=== PATIENT | male | born 1940 | race African-American/Black ===

== ENCOUNTER → 2017-07-01 | Outpatient (CLI) | payer BC, OTHER ==
[2014-07-30 12:00] VITALS: BP 145/63
[~2017-07-01] MED LIST: CYAN1TAB28 PO; FOLI0.4T PO; HYDR-2678 PO; LOSA1TAB19 PO; METF500T4 PO; SIMV20TA3 PO; TRAM-48 PO; TRAM50TA PO
[2017-07-01] MEDS: IOHEXOL 300 MG/ML 75 ML VIAL IV ONE (10:45)
--- NOTE | 2017-07-01 11:32 | RAD ---
CT chest Indication: Malignant neoplasm of upper lobe of right lung. Technique: CT chest with 75 mL of Omnipaque 300 with multiplanar reformats. Comparison: Previous CT chest from 07/17/2016 Findings: Stable 8 mm right thyroid low attenuating nodule. No axillary, mediastinal or hilar adenopathy. Heart is normal in size. No pericardial or pleural effusion. 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 Post surgical changes are seen in the right suprahilar region. Patulous midthoracic esophagus. No enhancing hilar mass. Redemonstrated is a stable partially calcified pulmonary nodule in the lingula measuring 1.4 x 1.7 cm. Upper lobe predominant emphysematous changes. The visualized liver is within normal limits. Punctate calcifications in the spleen likely healed granulomatous disease. No radiopaque gallstones. Visualized pancreas and adrenal glands are within normal limits. Stable deformity of the right posterior sixth rib. No suspicious bony lesions. Impression: 1. Postsurgical changes in the right suprahilar region. No new pulmonary mass. 2. Upper predominant emphysema. 3. Stable calcified granulomas in the lingula. PQRS Compliance Statement: One or more of the following individualized dose reduction techniques were utilized for this examination: 1. Automated exposure control 2. Adjustment of the mA and/or kV according to patient size 3. Use of iterative reconstruction technique
== END | disposition home or self-care (01) ==
LOC: CT 09:55
PROVIDERS: ATTEND Internal Medicine Hematology & Oncology
DX: C34.11 Malignant neoplasm of upper lobe, right bronchus or lung (principal); J43.9 Emphysema, unspecified; I10 Essential (primary) hypertension; E11.9 Type 2 diabetes mellitus without complications; Z87.891 Personal history of nicotine dependence; Z79.01 Long term (current) use of anticoagulants
CPT/HCPCS: 71260; Q9967

== ENCOUNTER 2017-11-26 21:49 | Emergency (ER) | payer BC, OTHER ==
[2017-11-26 23:16] LABS: ADD MAN DIFF? NO
[2017-11-26 23:18] LABS: BASO % 1 % (0-3); EOS # 0.1 x10^3/uL (0.0-0.7); EOS % 1 % (0-3); HEMATOCRIT 44.1 % (39.0-53.0); HEMOGLOBIN 15.2 g/dL (13.0-17.5); LYMPH # 1.3 x10^3/uL (1.0-4.8); LYMPH % 22 % (24-48); MEAN CORPUSCULAR HEMOGLOBIN 30 pg (25-35); MEAN CORPUSCULAR HGB CONC 35 g/dL (31-37); MEAN CORPUSCULAR VOLUME 87 fL (79-100); MONO # 0.7 x10^3/uL (0.0-1.1); MONO % 11 % (0-9); NEUT # 3.8 x10^3uL (1.8-7.7); NEUT % 65 % (31-73); PLATELET COUNT 165 x10^3/uL (140-400); RED BLOOD COUNT 5.06 x10^6/uL (4.30-5.70); RED CELL DISTRIBUTION WIDTH 13.7 % (11.5-14.5); WHITE BLOOD COUNT 5.9 x10^3/uL (4.0-11.0)
[2017-11-26 23:26] LABS: ANION GAP 5 (6-14); BLOOD UREA NITROGEN 7 mg/dL (8-26); CALCIUM 8.4 mg/dL (8.5-10.1); CARBON DIOXIDE 29 mmol/L (21-32); CHLORIDE 104 mmol/L (98-107); CREATININE 0.9 mg/dL (0.7-1.3); GFR 99.5; GLUCOSE 143 mg/dL (70-99); POTASSIUM 3.4 mmol/L (3.5-5.1); SODIUM 138 mmol/L (136-145)
[2017-11-26 23:27] LABS: INFLUENZA A PATIENT NEGATIVE (NEGATIVE)
[2017-11-26 23:28] LABS: INFLUENZA B PATIENT POSITIVE (NEGATIVE); OBC FLU VALID
[2017-11-26 23:32] LABS: ALBUMIN 3.6 g/dL (3.4-5.0); ALK PHOS 55 U/L (46-116); ALT (SGPT) 29 U/L (16-63); AST (SGOT) 20 U/L (15-37); DIRECT BILIRUBIN 0.2 mg/dL (0.0-0.2); LIPASE 130 U/L (73-393); TOTAL BILIRUBIN 0.7 mg/dL (0.2-1.0); TOTAL PROTEIN 7.8 g/dL (6.4-8.2)
[2017-11-26 23:36] LABS: TROPONINI < 0.017 ng/mL (0.000-0.055)
[2017-11-27] MEDS: OSELTAMIVIR 75 MG CAPSULE PO (00:03)
== END 2017-11-27 00:05 | disposition home or self-care (01) ==
LOC: ER 11-27 00:05
DX: J10.1 Influenza due to other identified influenza virus with other respiratory manifestations (principal); E11.9 Type 2 diabetes mellitus without complications; E78.00 Pure hypercholesterolemia, unspecified; I10 Essential (primary) hypertension; Z96.643 Presence of artificial hip joint, bilateral; Z88.0 Allergy status to penicillin
CPT/HCPCS: 36415; 71045; 80048; 80076; 83690; 84484; 85025; 87804; 87804-59; 93005; 99285-25

== ENCOUNTER → 2018-07-25 | Outpatient (CLI) | payer BC, OTHER ==
[2017-11-27] VITALS: BP 169/91
[~2018-07-25] MED LIST changes: +IOHEXOL 300 MG/ML 100ML VIAL. IV ONE; +METF500T16 PO; -METF500T4 PO; +OSEL75CA PO
[2018-07-25 10:00] LABS: BASO % 0 % (0-3); EOS # 0.1 x10^3/uL (0.0-0.7); EOS % 2 % (0-3); HEMATOCRIT 46.4 % (39.0-53.0); HEMOGLOBIN 15.9 g/dL (13.0-17.5); LYMPH # 1.7 x10^3/uL (1.0-4.8); LYMPH % 25 % (24-48); MEAN CORPUSCULAR HEMOGLOBIN 30 pg (25-35); MEAN CORPUSCULAR HGB CONC 34 g/dL (31-37); MEAN CORPUSCULAR VOLUME 88 fL (79-100); MONO # 0.7 x10^3/uL (0.0-1.1); MONO % 11 % (0-9); NEUT # 4.4 x10^3uL (1.8-7.7); NEUT % 63 % (31-73); PLATELET COUNT 203 x10^3/uL (140-400); RED BLOOD COUNT 5.25 x10^6/uL (4.30-5.70); RED CELL DISTRIBUTION WIDTH 14.4 % (11.5-14.5)
[2018-07-25 10:19] LABS: ALBUMIN 3.9 g/dL (3.4-5.0); CALCIUM 9.3 mg/dL (8.5-10.1); GFR 87.9; POTASSIUM 3.5 mmol/L (3.5-5.1); TOTAL BILIRUBIN 0.8 mg/dL (0.2-1.0); TOTAL PROTEIN 7.9 g/dL (6.4-8.2)
--- NOTE | 2018-07-25 16:39 | RAD ---
CT of the chest with contrast, 07/25/2018: HISTORY: Follow-up right lung cancer Multidetector CT imaging was performed following an IV bolus injection of iodinated contrast material. Comparison is made to a study from 07/01/2017. Changes of a previous right upper lobectomy are again noted. There is no evidence of right lung infiltrate or mass. Mild emphysematous changes are evident. Again noted is a partially calcified nodule in the lingula which is unchanged. There is a nearby smaller parenchymal calcification compatible with a granuloma. No new left lung nodule or infiltrate is seen. There is no evidence of pleural fluid. No mediastinal or hilar adenopathy is evident. There is an aberrant right subclavian artery arising from the distal aortic arch which is a normal variant. No adrenal abnormality is detected. IMPRESSION: Stable CT of the chest without evidence of recurrent tumor or metastatic disease. PQRS Compliance Statement: One or more of the following individualized dose reduction techniques were utilized for this examination: 1. Automated exposure control 2. Adjustment of the mA and/or kV according to patient size 3. Use of iterative reconstruction technique Electronically signed by: Marcello Heck MD (07/25/2018 4:36 PM) [facility]
== END | disposition home or self-care (01) ==
LOC: CT 09:15
PROVIDERS: ATTEND Internal Medicine Hematology & Oncology
DX: C34.11 Malignant neoplasm of upper lobe, right bronchus or lung (principal); R91.1 Solitary pulmonary nodule; I10 Essential (primary) hypertension; E11.9 Type 2 diabetes mellitus without complications; Z87.891 Personal history of nicotine dependence
CPT/HCPCS: 36415; 71260; 80053; 85025; Q9967

== ENCOUNTER → 2019-07-15 | Outpatient (CLI) | payer BC, OTHER ==
[2017-11-27] VITALS: BP 169/91
[~2019-07-15] MED LIST changes: +CONTRAST GIVEN. MC PRN
--- NOTE | 2019-07-15 16:20 | RAD ---
Examination: CT CHEST W/CONTRAST History: Lung cancer Comparison/Correlation: 07/25/2018 CT chest with contrast Findings: Axial images of chest were obtained following IV contrast. Sagittal and coronal reformatted images were provided. Right upper lobectomy is noted. Emphysematous involvement of the lung hopkins is noted. There is no infiltrate or pleural effusion. No pneumothorax. No pleural or pericardial effusion. Calcified nodule of the lingula are present with the larger of these measuring 1.9 cm diameter. Fatty infiltration of the liver is present. Impression: No evidence of recurrence. No suspicious findings in the interval. PQRS Compliance Statement: One or more of the following individualized dose reduction techniques were utilized for this examination: 1. Automated exposure control 2. Adjustment of the mA and/or kV according to patient size 3. Use of iterative reconstruction technique Electronically signed by: Taye Bhagat MD (07/15/2019 4:17 PM) [facility]
== END | disposition home or self-care (01) ==
LOC: CT 09:38
PROVIDERS: ATTEND Internal Medicine Hematology & Oncology
DX: C34.11 Malignant neoplasm of upper lobe, right bronchus or lung (principal); J43.9 Emphysema, unspecified; R91.1 Solitary pulmonary nodule; K76.0 Fatty (change of) liver, not elsewhere classified; Z88.0 Allergy status to penicillin
CPT/HCPCS: 71260; Q9967

== ENCOUNTER → 2019-08-19 | Outpatient (CLI) | payer BC, OTHER ==
[2017-11-27] VITALS: BP 169/91
[~2019-08-19] MED LIST changes: -CONTRAST GIVEN. MC PRN; -IOHEXOL 300 MG/ML 100ML VIAL. IV ONE; +SIMV20TA18 PO; -SIMV20TA3 PO
--- NOTE | 2019-08-19 11:07 | RESP ---
DATE OF SERVICE: 08/19/2019 REFERRING PHYSICIAN: Cori Tam MD The patient's FVC was 3.9, which is 98% predicted, FEV1 was 2.6, which is 89% predicted. The FEV1/FVC ratio was mildly reduced. SDI91-50 was 64% predicted. No bronchodilators given. Lung volume showed increased total lung capacity of 121% predicted, residual volume 165% predicted. Diffusion capacity was normal. IMPRESSION: 1. Spirometry findings suggesting small airway dysfunction. 2. No bronchodilators given. 3. Lung volumes consistent with air trapping and hyperinflation. 4. Normal diffusion capacity. KERVIN HYATT MD DR: NICOL/kellen JOB#: [id number] / [id number]
== END | disposition home or self-care (01) ==
LOC: PF 08:05
PROVIDERS: ATTEND Internal Medicine
DX: C34.11 Malignant neoplasm of upper lobe, right bronchus or lung (principal)
CPT/HCPCS: 94010; 94729

== ENCOUNTER 2019-10-22 08:08 | Outpatient (CLI) | payer BC, OTHER ==
[2019-10-22] VITALS (10 sets, daily range): BP systolic 111–153; BP diastolic 50–87
[~2019-10-22] VITALS: Ht 182.9 cm; Wt 87.1 kg
[2019-10-22] MEDS ORDERED: PROAIR RESPICL90 MCG IH (08:51)
[2019-10-22] MEDS ORDERED: DOXY100T PO (08:51)
[2019-10-22] MEDS ORDERED: ASPI-612 PO (08:51)
[2019-10-22] MEDS ORDERED: OMEP20CA16 PO (08:51)
[2019-10-22 09:17] LABS: BASO % 0 % (0-3); EOS % 0 % (0-3); HEMATOCRIT 46.4 % (39.0-53.0); HEMOGLOBIN 15.8 g/dL (13.0-17.5); LYMPH % 11 % (24-48); MEAN CORPUSCULAR HEMOGLOBIN 30 pg (25-35); MEAN CORPUSCULAR HGB CONC 34 g/dL (31-37); MEAN CORPUSCULAR VOLUME 87 fL (79-100); MONO # 0.7 x10^3/uL (0.0-1.1); MONO % 8 % (0-9); NEUT # 6.9 x10^3/uL (1.8-7.7); NEUT % 80 % (31-73); PLATELET COUNT 271 x10^3/uL (140-400); RED BLOOD COUNT 5.34 x10^6/uL (4.30-5.70); RED CELL DISTRIBUTION WIDTH 13.6 % (11.5-14.5); WHITE BLOOD COUNT 8.6 x10^3/uL (4.0-11.0)
[2019-10-22 09:31] LABS: PROTHROMBIN TIME PATIENT 13.6 SEC (11.7-14.0)
--- NOTE | 2019-10-22 11:37 | NUR ---
Discharge Note: MAMADOU BENAVIDES Discharge instructions and discharge home medications reviewed with Patient and a copy given. All questions have been answered and understanding verbalized. The following instructions and handouts were given: Thoracentesis Discontinued lines and drains: No IV for this visit. Patient discharged to home with daughter via wheelchair to private vehicle.
[2019-10-22 13:06] LABS: BF CLARITY CLOUDY; BF COLOR STRAW; BF MON % 83 %; BF RBC COUNT 4805 /cmm (Not Established); BF SOURCE PLEURAL; BF WBC COUNT 3874 /cmm (Not Established)
[2019-10-22 13:07] LABS: BF OTHER % 17 %
--- NOTE | 2019-10-22 14:30 | RAD ---
Ultrasound-guided left-sided thoracentesis 10/22/2019 12:26 PM Indication: LT PLEURAL EFFUSION Procedure: Informed consent was obtained. A timeout procedure was performed. Sonographic evaluation of the left chest was performed demonstrating moderate pleural effusion. The left posterior chest was prepped and draped in sterile fashion. 1% lidocaine without epinephrine was administered for local anesthesia. Real-time ultrasonographic guidance was used in passing a 5 Bulgar[place] NetStreamseh catheter into the left pleural space. 1.8 L of serosanguineous pleural fluid was removed. Samples of fluid were sent to the lab for further evaluation per ordering physician request. The catheter was removed and pressure held to achieve hemostasis. A sterile dressing was applied. No immediate complications were identified. The patient tolerated the procedure well. Impression: Left sided ultrasound-guided thoracentesis
--- NOTE | 2019-10-22 16:49 | RAD ---
Examination: PORTABLE CHEST 1V History: Status post thoracentesis Comparison/Correlation: 11/26/2017 AP view of the chest Findings: Portable upright frontal view of the chest was obtained. Heart size and pulmonary vasculature are normal. Small left basilar pleural effusion is present with adjacent atelectasis. No pneumothorax. Right lung field is unremarkable. Impression: Small left basilar pleural effusion. Adjacent atelectasis. No pneumothorax. Electronically signed by: Taye Bhagat MD (10/22/2019 4:46 PM) [facility]
--- NOTE | 2019-10-23 16:06 | PATHOLOGY ---
Note [facility] Accession Number: [id number] TESTS RESULT FLAG UNITS REF RANGE LAB Clinician Provided Cytology Information No. of containers..01 Other (Miscellaneous) Source: [A] 01 LT PLEURAL FLUID DIAGNOSIS: [A] 02 LT PLEURAL FLUID POSITIVE FOR MALIGNANT CELLS. NON SMALL CELL CARCINOMA, FAVOR ADENOCARCINOMA THIS INTERPRETATION INCLUDES EVALUATION OF A CELL BLOCK. COMMENT: FINDINGS DISCUSSED WITH DR. ARTHUR ON 10/23/19. Signed out by: Benny Amin MD, Pathologist NPI- [id number] Performed by: Isamar Hi, Merchandise Adjustment Clerk ([facility]) Gross description: 40 ML, ORANGE, CLOUDY /LCS 10/22/2019 1521 Local FLAG LEGEND: L-Low Normal,H-High Normal,LL-Alert Low,HH-Alert High <-Panic Low,>-Panic High,A-Abnormal,AA-Critical Abnormal Performed at: [place] [facility] [address] [place] [address] Jason Govea MD, [address] [facility] [address] [place] [address] Aleks Arora MD, Specimen Comment: A courtesy copy of this report has been sent to [phone], [phone] Specimen Comment: [id number] Specimen Comment: [id number] Specimen Comment: Report sent to / DR ARTHUR Specimen Comment: A duplicate report has been generated due to demographic updates. Performed at: [address], [place], [place] [id number] MD Jason Govea MD Phone: [phone]
== END 2019-10-22 11:35 | disposition home or self-care (01) ==
LOC: INTRAD 08:08
PROVIDERS: ATTEND Internal Medicine Hematology & Oncology
DX: J90 Pleural effusion, not elsewhere classified (principal); C34.92 Malignant neoplasm of unspecified part of left bronchus or lung; J98.11 Atelectasis; J93.83 Other pneumothorax; C34.11 Malignant neoplasm of upper lobe, right bronchus or lung; R63.4 Abnormal weight loss; Z88.0 Allergy status to penicillin; Z79.82 Long term (current) use of aspirin; Z79.84 Long term (current) use of oral hypoglycemic drugs; Z79.899 Other long term (current) drug therapy; Z98.890 Other specified postprocedural states; Z79.01 Long term (current) use of anticoagulants
CPT/HCPCS: 32555; 36415; 71045; 82945; 83615; 84157; 85025; 85610; 85730; 87071; 87075; 89050

== ENCOUNTER → 2019-10-30 | Outpatient (CLI) | payer BC, OTHER ==
[2019-10-22 11:35] VITALS: BP 126/83
[~2019-10-30] MED LIST changes: +ASPI-612 PO; +DOXY100T PO; +GADOTERATE 7.5 MMOL/15ML VIAL. IVP ONE; +OMEP20CA16 PO; +PROAIR RESPICL90 MCG IH
--- NOTE | 2019-10-30 10:23 | RAD ---
MRI Brain with and without contrast History: Lung cancer, dizziness and headaches Technique: Multiplanar, multi sequential pre and postcontrast MR imaging was performed of the brain. Comparison: None Findings: There is mild motion. There is no evidence of recent infarct or cytotoxic edema. Ventricular size is within normal limits. There is mild fairly generalized supratentorial atrophy, somewhat greater of the parietal lobes. There is no significant midline shift, intraaxial mass effect, or focal abnormal extra-axial fluid collection. There is very minimal FLAIR hyperintense signal near the frontal horns greater on the right, degree which can be seen in asymptomatic individuals. There is also tiny focus of T2 and FLAIR hyperintense signal of the left lopez radiata which may be due to small focus of gliosis. Tiny focus of signal change of the right caudate head may be prominent perivascular space or tiny old lacunar infarct. There is no convincing nodular parenchymal or leptomeningeal enhancement. Right vertebral artery flow-void is hypoplastic. The cerebellar tonsils are normal in location. There is no significant abnormality of the pineal gland or pituitary gland. There is minimal bilateral ethmoid air cell mucosal thickening. The mastoid air cells are aerated. There is a defined, approximate 1.9 cm CC by 1.3 cm AP enhancing mass in the clivus. There is degenerative disc disease and spondylosis of visualized C3-4 level. There has been lens surgery bilaterally, slightly disconjugate gaze. Impression: 1. There is no convincing abnormal intracranial enhancement. 2. There is enhancing mass in the clivus, evidence of osseous metastatic disease. Electronically signed by: Efra Rinaldi MD (10/30/2019 10:20 AM) [facility]
--- NOTE | 2019-11-02 10:12 | RAD ---
EXAM: PET W CT SKULL TO MIDTHIGH EXAM DATE: October 30, 2019 INDICATION: Weight loss and pleural effusion. History of lung cancer. Restaging. RADIOPHARMACEUTICAL: 14.5 mCi of F-18 Fluorodeoxyglucose (FDG) I.V. via the left antecubital fossa. TECHNIQUE: Patient weight: 190 pounds. Following at least four-hour fasting, the patient's blood glucose was 119 mg/dl. Approximately 1 hour after administration of FDG, overlapping emission scanning was performed from the orbital meatal line through the pelvis. A low-dose CT was performed for attenuation correction purposes and anatomic localization. Fused images of PET and CT were reviewed. Any standardized uptake values (SUV) reported are maximum values within a volume region of interest, expressed in gm/ml. COMPARISON: MRI brain 10/30/[address] with IV contrast, July 15, 2019 FINDINGS: PET: In the head and neck, asymmetrically minimally enlarged right cervical level 5 lymph nodes show abnormal FDG uptake to max SUV of 4.0. In the chest, a 2.2 cm left upper lobe lung nodule abutting the posterior aortic arch shows a max SUV of 8.2. Mediastinal adenopathy has developed with multiple hypermetabolic mildly enlarged nodes such as aortopulmonary window lymph node (Max SUV of 5.6), right lower paratracheal node (5.3) and subcarinal nodes (9.9). In the abdomen and pelvis, a new right adrenal nodule shows a max SUV of 3.6. There is also increased activity in the rectosigmoid colon to a max SUV of 13.65, noted the setting of bilateral hip arthroplasties that create streak artifact that may limit attenuation correction accuracy. The osseous structures show extensive hypermetabolic lesions compatible with osseous metastases. The clival lesion reported on recent brain MRI shows a max SUV of 3.4. Additional lesions include a right sternal manubrial lesion (4.3), T1 left lamina and spinous process lesion (5.3), right scapula (9.2), left-sided T3 vertebral body (4.6), left posterior fourth rib at the costotransverse junction (8.3), T6 vertebral body lesions (3.8, 5.0), T7 body (6.2) and T10 body (5.4). The lumbar spine and pelvis also show additional lesion such as in the L1 body (6.0), L4 (5.7), left sacrum (7.1), left iliac bone (3.4), inferior sacrum (5.6 and 5.3) and right iliac wing (6.1). CT: In the head and neck, the clival lesion is subtly sclerotic with no osteolytic lesion or pathologic fracture identified. The hypermetabolic right level 5 cervical lymph nodes measure 6 and 7 mm in maximum transverse diameter (axial image 71 of 329 on series 3 and image 75 of 329 on series 3). There is a dominant right 1.3 cm thyroid lobe nodule that is not hypermetabolic on PET. In the chest, surgical changes from previous right upper lobectomy are again evident with interval development of a moderate to large left pleural effusion and associated left lower lobe atelectasis. Respiratory motion artifact degrades detail but centrilobular emphysema noted previously is still present. Normal variant aberrant right subclavian artery again noted. Scattered atherosclerotic calcifications, including minimally in the coronary arteries. In the abdomen and pelvis bilateral hip arthroplasties. Streak artifact that degrades detail. No bulky adenopathy in the abdomen is seen. Atherosclerotic calcifications in the normal caliber abdominal aorta is present. There are scattered colonic diverticuli. IMPRESSION: Evidence of disease progression with a hypermetabolic left upper lobe pulmonary nodule associated with osseous, cervical lymph node, mediastinal lymph node, and right adrenal involvement. Electronically signed by: Kacey Gutierrez MD (11/02/2019 10:10 AM) [facility]
== END | disposition home or self-care (01) ==
LOC: PETSC 07:38
PROVIDERS: ATTEND Internal Medicine Hematology & Oncology
DX: C79.51 Secondary malignant neoplasm of bone (principal); C34.11 Malignant neoplasm of upper lobe, right bronchus or lung; G31.89 Other specified degenerative diseases of nervous system; J34.89 Other specified disorders of nose and nasal sinuses; M50.30 Other cervical disc degeneration, unspecified cervical region; M47.816 Spondylosis without myelopathy or radiculopathy, lumbar region
CPT/HCPCS: 70553; 78815; A9552; A9575

== ENCOUNTER 2019-11-10 07:02 | Emergency (ER) | payer BC, OTHER ==
[~2019-11-10] VITALS: Ht 182.9 cm; Wt 86.3 kg
[~2019-11-10 07:02] MED LIST changes: -GADOTERATE 7.5 MMOL/15ML VIAL. IVP ONE
[2019-11-10] MEDS ORDERED: IPRATRPIUM/ALBUTEROL 0.5/2.5MG 3 ML NEBU. NEB ONE (07:30)
--- NOTE | 2019-11-10 07:33 | PHYS DOC ---
Past Medical History Past Medical History: Cancer, Diabetes-Type II, GERD, High Cholesterol, Hypertension Additional Past Medical Histor: LUNG CA Past Surgical History: Cancer Surgery, Hip Replacement Additional Past Surgical Histo: RT UPPER LOBE REMOVED, THYROID NODULE, BILAT HIP REPLACEMENT Smoking Status: Former Smoker Alcohol Use: None Drug Use: None Adult General Chief Complaint Chief Complaint: SHORTNESS OF BREATH HPI HPI Patient is a 78 year old with history of hypertension, dyslipidemia, diabetes mellitus long cancer who presents via EMS with complaint of shortness of breath. Patient complaining of intermittent episodes of exertional shortness of breath since yesterday that gradually getting worse. Patient complains of orthopnea and subjective fever with mild productive cough with clear sputum. Patient denies chest pain, sick contact, myalgia, sore throat, earache, vomiting. Patient states he had thoracentesis 2 weeks ago and was seen by his oncologist yesterday was told that he had pleural effusion. Patient was advised to come to hospital if continued to have shortness of breath for breath thoracentesis. Patient had O2 sats of 98% at room and at arrival to ER. Review of Systems Review of Systems Constitutional: Reports subjective fever Eyes: Denies change in visual acuity, redness, or eye pain [] HENT: Denies nasal congestion or sore throat [] Respiratory: Reports cough and shortness of breath Cardiovascular: No additional information not addressed in HPI [] GI: Denies abdominal pain, nausea, vomiting, bloody stools or diarrhea [] : Denies dysuria or hematuria [] Musculoskeletal: Denies back pain or joint pain [] Integument: Denies rash or skin lesions [] Neurologic: Denies headache, focal weakness or sensory changes [] Endocrine: Denies polyuria or polydipsia [] All other systems were reviewed and found to be within normal limits, except as documented in this note. Current Medications Current Medications Current Medications Medications (Trade) Dose Ordered Sig/Iam Start Time Stop Time Status Last Admin Dose Admin Albuterol/ Ipratropium (Duoneb) 3 ml 1X ONCE 11/10/19 07:30 11/10/19 07:31 DC 11/10/19 07:35 3 ML Iohexol (Omnipaque 350 Mg/ml) 100 ml 1X ONCE 11/10/19 08:45 11/10/19 08:48 DC Allergies Allergies Allergies Coded Allergies Type Severity Reaction Last Updated Verified Penicillins Allergy Severe Swelling/ itching/ S.O.A. 07/21/14 Yes Physical Exam Physical Exam Constitutional: Well developed, well nourished, mild distress, non-toxic appearance. [] HENT: Normocephalic, atraumatic, bilateral external ears normal, oropharynx moist, no oral exudates, nose normal. [] Eyes: PERRLA, EOMI, conjunctiva normal, no discharge. [] Neck: Normal range of motion, no tenderness, supple, no stridor. [] Cardiovascular:Heart rate regular rhythm, no murmur [] Lungs & Thorax: No respiratory distress, decrease of air movement in left lung, no wheezing or rhonchi. Abdomen: Bowel sounds normal, soft, no tenderness, no masses, no pulsatile masses. [] Skin: Warm, dry, no erythema, no rash. [] Back: No tenderness, no CVA tenderness. [] Extremities: No tenderness, no cyanosis, no clubbing, ROM intact, no edema. [] Neurologic: Alert and oriented X 3, normal motor function, normal sensory function, no focal deficits noted. [] Psychologic: Affect normal, judgement normal, mood normal. [] Current Patient Data Vital Signs Vital Signs Date Time Temp Pulse Resp B/P (MAP) Pulse Ox O2 Delivery O2 Flow Rate FiO2 11/10/19 09:12 83 147/86 (106) 95 11/10/19 07:37 Room Air 11/10/19 07:02 99.0 20 99.0 Lab Values Laboratory Tests Test 11/10/19 07:10 11/10/19 07:17 Influenza Type A Antigen Negative (NEGATIVE) Influenza Type B Antigen Negative (NEGATIVE) White Blood Count 9.2 x10^3/uL (4.0-11.0) Red Blood Count 5.36 x10^6/uL (4.30-5.70) Hemoglobin 15.6 g/dL (13.0-17.5) Hematocrit 46.2 % (39.0-53.0) Mean Corpuscular Volume 86 fL (79-100) Mean Corpuscular Hemoglobin 29 pg (25-35) Mean Corpuscular Hemoglobin Concent 34 g/dL (31-37) Red Cell Distribution Width 13.9 % (11.5-14.5) Platelet Count 251 x10^3/uL (140-400) Neutrophils (%) (Auto) 82 % (31-73) H Lymphocytes (%) (Auto) 9 % (24-48) L Monocytes (%) (Auto) 8 % (0-9) Eosinophils (%) (Auto) 0 % (0-3) Basophils (%) (Auto) 0 % (0-3) Neutrophils # (Auto) 7.6 x10^3/uL (1.8-7.7) Lymphocytes # (Auto) 0.8 x10^3/uL (1.0-4.8) L Monocytes # (Auto) 0.8 x10^3/uL (0.0-1.1) Eosinophils # (Auto) 0.0 x10^3/uL (0.0-0.7) Basophils # (Auto) 0.0 x10^3/uL (0.0-0.2) Prothrombin Time 13.2 SEC (11.7-14.0) Prothrombin Time INR 1.0 (0.8-1.1) Activated Partial Thromboplast Time 31 SEC (24-38) D-Dimer (Mariela) 1.68 ug/mlFEU (0.00-0.50) H Sodium Level 134 mmol/L (136-145) L Potassium Level 4.4 mmol/L (3.5-5.1) Chloride Level 96 mmol/L (98-107) L Carbon Dioxide Level 30 mmol/L (21-32) Anion Gap 8 (6-14) Blood Urea Nitrogen 9 mg/dL (8-26) Creatinine 0.8 mg/dL (0.7-1.3) Estimated GFR (Cockcroft-Gault) 113.4 BUN/Creatinine Ratio 11 (6-20) Glucose Level 147 mg/dL (70-99) H Lactic Acid Level 1.4 mmol/L (0.4-2.0) Calcium Level 9.3 mg/dL (8.5-10.1) Total Bilirubin 0.9 mg/dL (0.2-1.0) Aspartate Amino Transferase (AST) 23 U/L (15-37) Alanine Aminotransferase (ALT) 16 U/L (16-63) Alkaline Phosphatase 123 U/L (46-116) H Creatine Kinase 72 U/L (39-308) Troponin I Quantitative < 0.017 ng/mL (0.000-0.055) VQ-Mpe-V-Type Natriuretic Peptide 69 pg/mL (0-449) Total Protein 8.4 g/dL (6.4-8.2) H Albumin 2.9 g/dL (3.4-5.0) L Albumin/Globulin Ratio 0.5 (1.0-1.7) L Laboratory Tests 11/10/19 07:17 Laboratory Tests 11/10/19 07:17 EKG EKG EKG interpreted by me. EKG at 0709 showed normal sinus rhythm at rate of 85, prolonged QT at 428, ST depression in anterolateral leads, no acute ST and T- wave abnormalities Radiology/Procedures Radiology/Procedures [id number] [place] [address] IMAGING REPORT Signed PATIENT: MAMADOU BENAVIDES ACCOUNT: [id number] : 1940 LOCATION: ER AGE: 78 SEX: M EXAM STATUS: REG ER ORD. PHYSICIAN: MAGDALENA GONZÁLES MD REASON: shortness of breath PROCEDURE: PORTABLE CHEST 1V PORTABLE CHEST 1V Clinical indications: Shortness of breath. COMPARISON: October 22, 2019. Findings: A large left-sided pleural effusion is seen with associated compressive atelectasis or consolidation of the left lung field. Right lung field remains clear. No pneumothorax is seen. Heart size is difficult to evaluate since the left heart border is obscured. Upper mediastinum is unremarkable. Impression: Large left-sided pleural effusion with associated compressive atelectasis or consolidation of the left lung field. Electronically signed by: Naveed Goodwin MD (11/10/2019 7:44 AM) [facility] DICTATED and SIGNED BY: NAVEED GOODWIN MD DATE: 11/10/19 0744 [id number] [place], [place] [id number] IMAGING REPORT Signed PATIENT: MAMADOU BENAVIDES ACCOUNT: [id number] : 1940 LOCATION: ER AGE: 78 SEX: M EXAM STATUS: REG ER ORD. PHYSICIAN: MAGDALENA GONZÁLES MD REASON: shortness of air PROCEDURE: CT ANGIOGRAPHY CHEST Examination: CT angiography chest HISTORY: History of shortness of breath COMPARISON: CT chest from 07/15/2019 TECHNIQUE: Axial CT angiographic images of chest were performed with IV contrast. Coronal and sagittal 3-D MIP reformats are performed. Exposure: One or more of the following individualized dose reduction techniques were utilized for this examination: 1. Automated exposure control 2. Adjustment of the mA and/or kV according to patient size 3. Use of iterative reconstruction technique FINDINGS: The visualized thyroid gland demonstrates a 1.1 cm hypodense nodule. The central airways are patent. Heart size grossly appears unremarkable. Mild aortic atherosclerosis. 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 There is no filling defect identified in the main pulmonary arterial trunk and right and left main pulmonary arteries the visualized lobar, segmental branch of the pulmonary arteries. Mild bilateral lung emphysematous changes identified. Large left pleural effusion identified with volume loss and consolidation identified in the left lower lobe of the lung. There is a 3.2 x 1.9 cm soft tissue density identified in the left suprahilar region, best visualized on series 3 image #62 suspicious for neoplasm or mass. The visualized liver, adrenals grossly appears unremarkable. There are multiple sclerotic foci identified in the throughout the thoracic spine and possibly the sternum and few ribs probably sclerotic metastasis. IMPRESSION: 1. No evidence of pulmonary embolism. 2. Large left pleural effusion. 3. A 3.2 x 1.9 cm soft tissue density identified in the left suprahilar region, best visualized on series 3 image #62 suspicious for neoplasm or mass. 4. Multiple sclerotic foci identified in the visualized skeleton likely sclerotic metastasis. Electronically signed by: Wai Castellano MD (11/10/2019 9:12 AM) [facility] DICTATED and SIGNED BY: WAI CASTELLANO MD DATE: 11/10/19911 Course & Med Decision Making Course & Med Decision Making Pertinent Labs and Imaging studies reviewed. (See chart for details) Evaluation of patient in ER showed 78-year-old male patient with history of lung cancer and pleural effusion presented by EMS because of shortness of breath since yesterday. Patient had large left pleural effusion and had thoracentesis by interventional radiologist with removal of 2 L of fluid from his long with improvement of his shortness of breath and increasing of O2 sats. Patient had mild elevation of d-dimer with unremarkable CT of chest for PE. Patient felt better and wanted to go home. Patient was advised to follow-up with his oncol ogist continue his current medication. I've spoken with the patient and/or caregivers. I've explained the patient's condition, diagnosis and treatment plan based on information available to me at this time. I've answered the patient's and/or caregivers questions and addressed any concerns. The patient and/or caregivers have a good understanding the patient's diagnosis, condition and treatment plan as can be expected at this point. Vital signs have been stabilized. The patient's condition is stable for discharge from the emergency department. The patient will pursue further outpatient evaluation with her primary care provider or other designated consulting physician as outlined in the discharge instructions. Patient and/or caregivers are agreeable to this plan of care and follow-up instructions have been explained in detail. The patient and/or caregivers have received these instructions in written format and expressed understanding of these discharge instructions. The patient and her caregivers are aware that if any significant change in condition or worsening of symptoms should prompt him to immediately return to this of the closest emergency department. If an emergent department is not readily available I would encourage him to call 911. [place]nn Disclaimer Kaylion Disclaimer This electronic medical record was generated, in whole or in part, using a voice recognition dictation system. Departure Departure Impression: Primary Impression: Large pleural effusion Additional Impressions: Lung cancer Shortness of breath Elevated d-dimer Hypoalbuminemia Disposition: HOME, SELF-CARE (at 0942) Condition: IMPROVED Referrals: YOAV THOMAS (PCP) Patient Instructions: Pleural Effusion Additional Instructions: Continue current medication Follow-up with your primary care physician and oncologist in 2-3 days Return to ER if not getting better Thank you for visiting [facility]. We appreciate you trusting us with your care. If any additional problems come up don't hesitate to return to visit us. Please follow up with your primary care provider so they can plan additional care if needed and know about the problem that you had. If symptoms worsen come back to the Emergency Department. Any concerning symptoms that start such as chest pain, shortness of air, weakness or numbness on one side of the body, running high fevers or any other concerning symptoms return to the ER. Problem Qualifiers Additional Impressions: Lung cancer Laterality: left Lung location: unspecified part of lung Qualified Codes: C34.92 - Malignant neoplasm of unspecified part of left bronchus or lung MAGDALENA GONZÁLES MD Nov 10, 2019 07:33
[2019-11-10 07:36] LABS: BASO % 0 % (0-3); EOS % 0 % (0-3); HEMATOCRIT 46.2 % (39.0-53.0); HEMOGLOBIN 15.6 g/dL (13.0-17.5); LYMPH # 0.8 x10^3/uL (1.0-4.8); LYMPH % 9 % (24-48); MEAN CORPUSCULAR HEMOGLOBIN 29 pg (25-35); MEAN CORPUSCULAR HGB CONC 34 g/dL (31-37); MEAN CORPUSCULAR VOLUME 86 fL (79-100); MONO # 0.8 x10^3/uL (0.0-1.1); MONO % 8 % (0-9); NEUT # 7.6 x10^3/uL (1.8-7.7); NEUT % 82 % (31-73); PLATELET COUNT 251 x10^3/uL (140-400); RED BLOOD COUNT 5.36 x10^6/uL (4.30-5.70); RED CELL DISTRIBUTION WIDTH 13.9 % (11.5-14.5); WHITE BLOOD COUNT 9.2 x10^3/uL (4.0-11.0)
[2019-11-10 07:45] LABS: CALCIUM 9.3 mg/dL (8.5-10.1); CREATININE 0.8 mg/dL (0.7-1.3); GFR 113.4; PROTHROMBIN TIME PATIENT 13.2 SEC (11.7-14.0)
--- NOTE | 2019-11-10 07:47 | RAD ---
PORTABLE CHEST 1V Clinical indications: Shortness of breath. COMPARISON: October 22, 2019. Findings: A large left-sided pleural effusion is seen with associated compressive atelectasis or consolidation of the left lung field. Right lung field remains clear. No pneumothorax is seen. Heart size is difficult to evaluate since the left heart border is obscured. Upper mediastinum is unremarkable. Impression: Large left-sided pleural effusion with associated compressive atelectasis or consolidation of the left lung field. Electronically signed by: Alexis Goodwin MD (11/10/2019 7:44 AM) [facility] [place]
[2019-11-10 07:49] LABS: ALBUMIN 2.9 g/dL (3.4-5.0); ALBUMIN/GLOBULIN RATIO 0.5 (1.0-1.7); D-DIMER 1.68 ug/mlFEU (0.00-0.50); TOTAL BILIRUBIN 0.9 mg/dL (0.2-1.0); TOTAL PROTEIN 8.4 g/dL (6.4-8.2)
[2019-11-10 07:50] LABS: INFLUENZA A PATIENT NEGATIVE (NEGATIVE); INFLUENZA B PATIENT NEGATIVE (NEGATIVE)
[2019-11-10 07:53] LABS: POTASSIUM 4.4 mmol/L (3.5-5.1)
[2019-11-10] MEDS ORDERED: IOHEXOL 350 MG/ML 100 ML VIAL. IV ONE (08:45)
[2019-11-10 09:12] VITALS: BP 147/86
--- NOTE | 2019-11-10 09:15 | RAD ---
Examination: CT angiography chest HISTORY: History of shortness of breath COMPARISON: CT chest from 07/15/2019 TECHNIQUE: Axial CT angiographic images of chest were performed with IV contrast. Coronal and sagittal 3-D MIP reformats are performed. Exposure: One or more of the following individualized dose reduction techniques were utilized for this examination: 1. Automated exposure control 2. Adjustment of the mA and/or kV according to patient size 3. Use of iterative reconstruction technique FINDINGS: The visualized thyroid gland demonstrates a 1.1 cm hypodense nodule. The central airways are patent. Heart size grossly appears unremarkable. Mild aortic atherosclerosis. 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 There is no filling defect identified in the main pulmonary arterial trunk and right and left main pulmonary arteries the visualized lobar, segmental branch of the pulmonary arteries. Mild bilateral lung emphysematous changes identified. Large left pleural effusion identified with volume loss and consolidation identified in the left lower lobe of the lung. There is a 3.2 x 1.9 cm soft tissue density identified in the left suprahilar region, best visualized on series 3 image #62 suspicious for neoplasm or mass. The visualized liver, adrenals grossly appears unremarkable. There are multiple sclerotic foci identified in the throughout the thoracic spine and possibly the sternum and few ribs probably sclerotic metastasis. IMPRESSION: 1. No evidence of pulmonary embolism. 2. Large left pleural effusion. 3. A 3.2 x 1.9 cm soft tissue density identified in the left suprahilar region, best visualized on series 3 image #62 suspicious for neoplasm or mass. 4. Multiple sclerotic foci identified in the visualized skeleton likely sclerotic metastasis. Electronically signed by: Wai Castellano MD (11/10/2019 9:12 AM) [facility]
[2019-11-10 10:35] VITALS: BP 178/94
--- NOTE | 2019-11-10 12:06 | EKG ---
[facility] [address] [place] [address] Test Date: 2019-11-10 Test Time: 07:09:43 Pat Name: MAMADOU BENAVIDES Department: Room: Gender: Pocket Marker: : 1940 Requested By: MAGDALENA GONZÁLES Order Number: [id number] Reading MD: Measurements Intervals [place] Rate: 85 P: 50 TX: 136 QRS: 16 QRSD: 92 T: 29 QT: 428 QTc: 516 Interpretive Statements SINUS RHYTHM PROLONGED QT NO SPECIFIC ECG ABNORMALITIES RI6.01 No previous ECG available for comparison
--- NOTE | 2019-11-10 12:12 | RAD ---
CHEST AP ONLY Clinical Indication: Postthoracentesis Comparison: CTA chest 11/10/2019. Findings: Portable upright frontal view of the chest was obtained. The cardiomediastinal silhouette is normal. Moderate-sized left basal pleural effusion with adjacent atelectasis is present. Limited pulmonary inflation noted. There is no pneumothorax. No acute bone abnormality. Old right sixth posterior rib fracture is present. Left glenohumeral joint degenerative narrowing and spurring is present. IMPRESSION: Decreased left pleural effusion. No pneumothorax. Electronically signed by: Taye Bhagat MD (11/10/2019 12:09 PM) [id number]
--- NOTE | 2019-11-10 16:36 | RAD ---
Ultrasound-guided right-sided thoracentesis 11/10/2019 2:32 PM Indication: large left pleural effusion, history of lung cancer and thoracentesis Procedure: Informed consent was obtained. A timeout procedure was performed. Sonographic evaluation of the left chest was performed demonstrating moderate pleural effusion. The left posterior chest was prepped and draped in sterile fashion. 1% lidocaine without epinephrine was administered for local anesthesia. Real-time ultrasonographic guidance was used in passing a 5 Uz[place] Ziparieh catheter into the left pleural space. 2 L of serosanguineous pleural fluid was removed. Samples of fluid were sent to the lab for further evaluation per ordering physician request. The catheter was removed and pressure held to achieve hemostasis. A sterile dressing was applied. No immediate complications were identified. The patient tolerated the procedure well. Impression: Left sided ultrasound-guided thoracentesis
== END 2019-11-10 10:35 | disposition home or self-care (01) ==
LOC: ER 07:02
DX: C34.92 Malignant neoplasm of unspecified part of left bronchus or lung (principal); J90 Pleural effusion, not elsewhere classified; R06.02 Shortness of breath; E88.09 Other disorders of plasma-protein metabolism, not elsewhere classified; R79.1 Abnormal coagulation profile; K21.9 Gastro-esophageal reflux disease without esophagitis; E11.9 Type 2 diabetes mellitus without complications; I10 Essential (primary) hypertension; Z87.891 Personal history of nicotine dependence; Z88.0 Allergy status to penicillin
CPT/HCPCS: 32555; 36415; 71045; 71275; 80053; 82550; 83605; 83880; 84484; 85025; 85379; 85610; 85730; 87040; 87804; 93005; 94640; 99285; J7620

== ENCOUNTER 2019-11-19 06:55 | Outpatient (CLI) | payer BC, OTHER ==
[~2019-11-19] VITALS: Ht 182.9 cm; Wt 86.2 kg
[2019-11-19 07:29] VITALS: BP 113/79
[2019-11-19 09:10] VITALS: BP 115/78
[2019-11-19 09:24] VITALS: BP 123/71
[2019-11-19 09:43] VITALS: BP 135/80
[2019-11-19 10:11] VITALS: BP 127/79
[2019-11-19 10:45] VITALS: BP 115/68
--- NOTE | 2019-11-19 11:01 | NUR ---
Discharge Note: MAMADOU BENAVIDES Discharge instructions and discharge home medications reviewed with Patient and a copy given. All questions have been answered and understanding verbalized. The following instructions and handouts were given: Thoracentesis. Discontinued lines and drains: non to dc. Patient discharged to home with daughter via car.
--- NOTE | 2019-11-19 15:06 | RAD ---
Ultrasound Guided Thoracentesis, left side Indication: Adult male with left pleural effusion, recurrent Sedation: Local anesthesia only Sterility: The procedure was performed in its entirety using appropriate elements of sterile technique. Technique and Findings: Following informed consent, the patient was prepped and draped in the usual sterile fashion. Ultrasound interrogation of the area of interest was performed revealing the presence of a pleural fluid collection. 1% Lidocaine was used to achieve local anesthesia over the area of interest. A small dermatotomy was made and a 5F [id number]-lpbnplzo catheter was advanced under ultrasound guidance into the pleural space [id number] cc's of thin yellow fluid was removed. The catheter was then removed and hemostasis was achieved with manual compression. Impression: US thoracentesis as described.
--- NOTE | 2019-11-20 08:04 | RAD ---
Examination: PORTABLE CHEST 1V History: Postthoracentesis of the left pleural effusion Comparison/Correlation: 11/10/2019 AP view of the chest Findings: Moderate-sized left pleural effusion is present. No pneumothorax. Right lung field is unremarkable. Surgical clips about the right hilum are present. Impression: Improved left basilar aeration. Moderate size left pleural effusion is similar to the previous exam. Electronically signed by: Taye Bhagat MD (11/20/2019 8:01 AM) [facility]
== END 2019-11-19 10:52 | disposition home or self-care (01) ==
LOC: INTRAD 06:55
PROVIDERS: ATTEND Internal Medicine Hematology & Oncology
DX: J90 Pleural effusion, not elsewhere classified (principal)
CPT/HCPCS: 32555; 71045

== ENCOUNTER 2019-11-26 10:13 | Outpatient (CLI) | payer BC, OTHER ==
[2019-11-26] VITALS (8 sets, daily range): BP systolic 92–129; BP diastolic 57–79
[~2019-11-26] VITALS: Ht 182.9 cm; Wt 85.7 kg
--- NOTE | 2019-11-26 15:17 | RAD ---
Ultrasound Guided Thoracentesis, left side Indication: Adult male with recurrent left pleural effusion Sedation: Local anesthesia only. Sterility: The procedure was performed in its entirety using appropriate elements of sterile technique. Technique and Findings: Following informed consent, the patient was prepped and draped in the usual sterile fashion. Ultrasound interrogation of the area of interest was performed revealing the presence of a pleural fluid collection. 1% Lidocaine was used to achieve local anesthesia over the area of interest. A small dermatotomy was made and a 5F Ckh-s-eukeiloy catheter was advanced under ultrasound guidance into the pleural space and 1950 cc's of clear damian fluid was removed. The catheter was then removed and hemostasis was achieved with manual compression. Impression: US thoracentesis as described.
--- NOTE | 2019-11-26 15:47 | NUR ---
Discharge Note: MAMADOU BENAVIDES Discharge instructions and discharge home medications reviewed with Family Member and a copy given. All questions have been answered and understanding verbalized. The following instructions and handouts were given: Thoracentesis. Discontinued lines and drains: NO IV this visit. Patient discharged to home with daughter via wheelchair to private vehicle.
--- NOTE | 2019-11-26 17:42 | RAD ---
EXAM: CHEST AP ONLY INDICATION: Status post thoracentesis. TECHNIQUE: Portable upright single view chest COMPARISON: 11/19/2019 chest x-ray, Chest CT without IV contrast of 10/30/2019. FINDINGS: The heart size is normal. The great vessels appear unremarkable. There is no hilar or mediastinal mass. Surgical changes from a right upper lobectomy are redemonstrated. Lungs show a lingular opacity newly evident. The moderate left pleural effusion has been evacuated but there is a pneumothorax newly evident, best seen around the lingula. There are no significant osseous abnormalities. IMPRESSION: Likely small left pneumothorax and residual airspace opacity in the lingula status post thoracentesis. No evidence of tension. Patient subsequently underwent a follow-up examination in management of this finding. Electronically signed by: Kacey Gutierrez MD (11/26/2019 5:40 PM) [facility]
--- NOTE | 2019-11-26 17:42 | RAD ---
AP chest. HISTORY: Postthoracentesis AP view of the chest was taken at 3:22 PM. Comparison is made with a study from earlier today. There is atelectasis or consolidation in the left lower lobe. There is a small pneumothorax at the left costophrenic angle. There is been no change compared to the earlier film. A trapped lung is possible. Previous pleural effusion noted on the study from November 19 has been aspirated almost completely. Right lung is clear. IMPRESSION: 1. Persistent small left pneumothorax. 2. Infiltrate or atelectasis left lower lobe. Electronically signed by: Teo Anguiano MD (11/26/2019 5:40 PM) [id number]
[2019-11-28] MEDS ORDERED: LOSA-73 PO (10:59)
== END 2019-11-26 15:40 | disposition home or self-care (01) ==
LOC: INTRAD 10:13
PROVIDERS: ATTEND Internal Medicine Hematology & Oncology
DX: J90 Pleural effusion, not elsewhere classified (principal); Z79.899 Other long term (current) drug therapy
CPT/HCPCS: 32555; 71045; 82962

== ENCOUNTER → 2019-12-03 | Outpatient (CLI) | payer BC, OTHER ==
[2019-12-03] VITALS (9 sets, daily range): BP systolic 122–143; BP diastolic 68–86
[~2019-12-03] VITALS: Ht 182.9 cm; Wt 86.2 kg
[~2019-12-03] MED LIST changes: +LIDOCAINE 1%/EPI 1:100,000 20 ML VIAL. INJ ONE; +LIDOCAINE 1%/EPI 1:100,000 20 ML VIAL. ONE; +LOSA-73 PO; +MIDAZOLAM HCL/PF 2 MG/2 ML VIAL. IV ONE; +VANCOMYCIN 1GM IVPB FOR OMNI 250 ML IV ONE; +VANCOMYCIN 1GM IVPB FOR OMNI 250 ML ONE; +fentaNYL PF VIAL 100 MCG/2 ML VIAL IV ONE
--- NOTE | 2019-12-03 11:37 | NUR ---
Discharge Note: MAMADOU BENAVIDES Discharge instructions and discharge home medications reviewed with Patient and a copy given. All questions have been answered and understanding verbalized. Pt dressing to L chest remains clean and dry The following instructions and handouts were given: Pleurx training provided and family member demonstrated understanding under guidance of staff. Moderate sedation, ascites drain. Starter kit for pleurx provided. Discontinued lines and drains: Peripheral IV intact. Patient discharged to Home or Self Care with Family Member via Wheelchair. GILLES RN Addendum: 12/03/19 at 1141 by ALLIE WRIGHT RN Amended: Links added.
--- NOTE | 2019-12-04 13:19 | RAD ---
Ultrasound and fluoroscopically guided placement of a tunneled thoracostomy tube, Pleurx catheter 12/03/2019 INDICATION: Recurrent malignant effusion Discussion: The procedure was explained in its entirety to the patient or the patients designated real estate representative by a member of the treatment team, including a discussion of the risks, benefits and commonly accepted alternatives to the procedure, as well as the expected consequences of no therapy whatsoever. Discussion of the risks included, but was not limited to, those that are most frequent and those that are rare but possibly severe or life-threatening, as well as the possibility of unforeseen complications. All elements of maximal sterile barrier technique including the use of a cap, mask, sterile gown, sterile gloves, large sterile sheet, appropriate hand hygiene, and 2% chlorhexidine for cutaneous antisepsis (or acceptable alternative antiseptic per current guidelines) were followed for this procedure. The left chest was prepped and draped using sterile barrier technique. Ultrasound evaluation demonstrates a moderate to large left pleural effusion. 1% lidocaine was administered for local anesthesia. The pleural effusion was accessed under direct ultrasound guidance with a 5 Urdu sheath needle. Reference images were saved in the medical record. A guidewire for distal pleural space under fluoroscopy. Over this wire a peel-away sheath was placed. A tunneled thoracostomy tube was advanced from small dermatotomy several centimeters anterior to the access site, to the access site. It was advanced to the peel-away sheath into the pleural space. Serous pleural fluid was aspirated. Catheter was secured in place. Sterile dressings were applied. No immediate complications were identified. Total fluoroscopy time: 1.8 min Dose area product: 8 Gycm2 The procedures performed under conscious sedation including continuous cardiopulmonary monitoring via dedicated sedation nurse. [id number] sedation time: 30 minutes Impression: Left tunneled thoracostomy tube placement (Pleurx catheter)
== END ==
LOC: INTRAD 07:20
PROVIDERS: ATTEND Internal Medicine Hematology & Oncology
DX: J90 Pleural effusion, not elsewhere classified (principal); C34.12 Malignant neoplasm of upper lobe, left bronchus or lung
CPT/HCPCS: 32550; 75989; 76937; 99152; 99153; C1892; J2250; J3010; J3370; J3490